=== PATIENT | female | born 1960 | race Caucasian/White ===

== ENCOUNTER → 2017-09-02 | Outpatient (CLI) | payer BC | END | disposition home or self-care (01) | LOC: MAMMO 10:02 | DX: Z12.31 Encounter for screening mammogram for malignant neoplasm of breast (principal); I10 Essential (primary) hypertension; F32.9 Major depressive disorder, single episode, unspecified | CPT/HCPCS: 77063; 77067 ==

== ENCOUNTER → 2018-03-09 | Outpatient (CLI) | payer BC ==
[2015-02-08 10:26] VITALS: BP 159/86
--- NOTE | 2018-03-09 13:46 | RAD ---
DATE: 03/09/2018 EXAM: MAMMO NAV DIAG BILAT HISTORY: 6 month follow-up COMPARISON: 09/02/2017 This study was interpreted with the benefit of Computerized Aided Detection (CAD). Breast Density: SCATTERED The breast parenchyma shows scattered fibroglandular densities. Breast parenchyma level B. FINDINGS: 2-D and 3-D tomosynthesis imaging was performed in CC and MLO projections. Small smooth scattered breast nodules appear unchanged again favoring a benign etiology. No new or enlarging breast densities are seen. No spiculated mass or architectural distortion is evident. Minimal benign type calcification is present. No suspicious microcalcifications have developed. IMPRESSION: Stable mammograms without evidence of malignancy. BI-RADS CATEGORY: 2 BENIGN FINDING(S) RECOMMENDED FOLLOW-UP: 12M 12 MONTH FOLLOW-UP PQRS compliance statement: Patient information was entered into a reminder system with a target due date for the next mammogram. Mammography is a sensitive method for finding small breast cancers, but it does not detect them all and is not a substitute for careful clinical examination. A negative mammogram does not negate a clinically suspicious finding and should not result in delay in biopsying a clinically suspicious abnormality. "Our facility is accredited by the [employer] Mammography [employer]."
== END | disposition home or self-care (01) ==
LOC: MAMMO 12:41
PROVIDERS: ATTEND Family Medicine
DX: R92.8 Other abnormal and inconclusive findings on diagnostic imaging of breast (principal)
CPT/HCPCS: 77066; G0279; 77062

== ENCOUNTER 2019-02-25 18:48 | Emergency (ER) | payer BC ==
[2019-02-25 19:00] VITALS: BP 171/90
[2019-02-25] MEDS ORDERED: DICL50TA2 PO (20:09)
[2019-02-25] MEDS ORDERED: HYDR-3164 PO (20:09)
--- NOTE | 2019-02-25 20:09 | PHYS DOC ---
Past Medical History Past Medical History: Arthritis, Depression, Hypertension Past Surgical History: Additional Past Surgical Histo: neck Alcohol Use: None Drug Use: None Adult General Chief Complaint Chief Complaint: ANKLE PROBLEM HPI HPI Patient is a 58 year old female who presents to the ED today complaining of 8 out of 10 throbbing intermittent left lateral ankle pain that began 3 days ago after she stepped wrong getting into her new truck. Patient denies falling. Describes the pain as sharp worse on weight bearing. She states the Al bandage she has on antibiotics some of the pain. Review of Systems Review of Systems Constitutional: Denies fever or chills [] Musculoskeletal: Reports left ankle pain Integument: Denies rash or skin lesions [] Neurologic: Denies headache, focal weakness or sensory changes [] All other systems were reviewed and found to be within normal limits, except as documented in this note. Allergies Allergies Allergies Coded Allergies Type Severity Reaction Last Updated Verified Sulfa (Sulfonamide Antibiotics) Allergy Intermediate hives 02/08/15 Yes Physical Exam Physical Exam Constitutional: Well developed, well nourished, no acute distress, non-toxic appearance. [] Skin: Warm, dry, no erythema, no rash. [] Back: No tenderness, no CVA tenderness. [] Extremities: Left ankle with no obvious deformity. Tenderness on palpation of the left lateral ankle. Full range of motion to the left ankle. +2 left pedal pulse. Cap refill less than 2 seconds the left lower extremity. Sensation i ntact. Neurologic: Alert and oriented X 3, normal motor function, normal sensory function, no focal deficits noted. [] Psychologic: Affect normal, judgement normal, mood normal. [] Current Patient Data Vital Signs Vital Signs Date Time Temp Pulse Resp B/P (MAP) Pulse Ox O2 Delivery O2 Flow Rate FiO2 02/25/19 19:00 97.8 85 12 171/90 (117) 96 Room Air 97.8 EKG EKG [] Radiology/Procedures Radiology/Procedures [] Course & Med Decision Making Course & Med Decision Making Pertinent Labs and Imaging studies reviewed. (See chart for details) This is a 58-year-old female patient presenting to the ED today with left ankle pain that began 3 days ago after she stepped wrong getting into her truck. Left ankle x-rays interpreted by Dr. Shen are negative for any acute findings. Patient already has an Al bandage on the left ankle, neurovascular exam is intact. Ice elevation encouraged. Follow-up with orthopedic doctor in a week if pain persist Dragon Disclaimer Dragon Disclaimer This electronic medical record was generated, in whole or in part, using a voice recognition dictation system. Departure Departure Impression: Primary Impression: Left ankle sprain Disposition: HOME, SELF-CARE Condition: STABLE Referrals: DANIELA MONROE MD (PCP) JUNIOR SANCHEZ MD follow up in 1 week Patient Instructions: Ankle Sprain Additional Instructions: You were seen for left ankle sprain, your left ankle x-rays are negative for any acute findings. Try to ice and elevate the extremity. Take the prescribed me dications as needed for pain and follow-up with your own doctor the provided orthopedic doctor in 1-2 weeks Scripts Diclofenac Potassium (DICLOFENAC POTASSIUM) 50 Mg Tablet 1 TAB PO BID, #20 TAB 0 Refills Prov: GODFREY TESFAYE APRN 02/25/19 Hydrocodone/Apap 5-325 (NORCO 5-325 TABLET) 1 Each Tablet 1 TAB PO Q6HRS, #10 TAB Prov: GODFREY TESFAYE APRN 02/25/19 Problem Qualifiers Primary Impression: Left ankle sprain Encounter type: initial encounter Involved ligament of ankle: unspecified ligament Qualified Codes: S93.402A - Sprain of unspecified ligament of left ankle, initial encounter GODFREY TESFAYE APRN Feb 25, 2019 20:09
--- NOTE | 2019-02-25 23:41 | RAD ---
Left ankle 3 views: Reason for examination: Left ankle pain for 2 days after rolling leg. No fracture or dislocation is evident. The bone density is normal. No abnormal periosteal reaction is seen. A small corticated os trigone appears to be present. Joint spaces are maintained. There does appear to be some soft tissue fullness medially. IMPRESSION: Soft tissue fullness medially. No acute bony abnormality evident. Electronically signed by: Whitney Naranjo MD (02/25/2019 11:38 PM) [id number]
== END 2019-02-25 20:31 | disposition home or self-care (01) ==
LOC: ER 18:48
DX: S93.402A Sprain of unspecified ligament of left ankle, initial encounter (principal); R00.2 Palpitations; M19.90 Unspecified osteoarthritis, unspecified site; F32.9 Major depressive disorder, single episode, unspecified; I10 Essential (primary) hypertension; Z98.890 Other specified postprocedural states; Z88.2 Allergy status to sulfonamides; W18.42XA Slipping, tripping and stumbling without falling due to stepping into hole or opening, initial encounter; Y93.89 Activity, other specified; Y92.89 Other specified places as the place of occurrence of the external cause; Y99.8 Other external cause status
CPT/HCPCS: 73610; 99284

== ENCOUNTER → 2019-09-04 | Outpatient (CLI) | payer BC ==
[~2019-09-04] MED LIST: DICL50TA2 PO; HYDR-3164 PO
--- NOTE | 2019-09-04 08:10 | RAD ---
INDICATION: Reason: LUQ PAIN / Spl. Instructions: / History: COMPARISON: None. TECHNIQUE: Grayscale and color ultrasound images obtained through the abdomen. FINDINGS: Aorta/IVC: Visualized portion unremarkable. Pancreas: Visualized portions unremarkable. Only partially seen. Liver: Echogenic. Gallbladder: Gallstones are visualized. Common Bile Duct: 5-6 mm. Right Kidney: No hydronephrosis. Spleen unremarkable. No left-sided hydronephrosis. IMPRESSION: * Gallstone is identified without common bile duct dilation. * Liver is echogenic. Nonspecific but can be seen with fatty infiltration. Electronically signed by: Xavier Early MD (09/04/2019 8:07 AM) [id number]
== END | disposition home or self-care (01) ==
LOC: US 06:51
PROVIDERS: ATTEND Nurse Practitioner Family
DX: K80.80 Other cholelithiasis without obstruction (principal); R10.12 Left upper quadrant pain
CPT/HCPCS: 76700

== ENCOUNTER → 2020-06-19 | Outpatient (CLI) | payer BC ==
--- NOTE | 2020-06-19 14:23 | KCIC ---
Bilateral digital screening mammograms with 3-D tomosynthesis: Reason for examination: Routine screening. Comparison is made to previous studies dated 03/09/2018 and 09/02/2017. Bilateral mammograms in CC and oblique projections were obtained with 2-D imaging and 3-D tomosynthes is imaging on a Siemens Inspiration unit and reviewed on the workstation. Interpretation was made wit h the benefit of CAD. The skin and nipples show no abnormalities. No abnormal axillary lymph nodes are seen. The breast par enchyma shows scattered fatty and fibroglandular density. (Breast density: Category B.) There appears to be a small nodular parenchymal density developing in the 2:00 B position of the left breast appro ximately 10 cm from the nipple and measuring approximately 6.4 mm in size. There also appear to be se veral small circumscribed nodules anteriorly in both breasts. There appears to be a small subcutaneou s lesion at the 9:00 position of the left breast 13.5 cm from the nipple. There is also a new subtle parenchymal density just beneath the skin surface at approximately the 8:00 B position of the left br east. These superficial nodules may represent sebaceous cysts. There are no other dominant masses, conte spicious calcifications or architectural distortion. Impression: Small nodular parenchymal densities bilaterally. Recommend further evaluation with bilateral breast u ltrasound. BI-RADS Category 0: Incomplete. Needs additional imaging evaluation "Our facility is accredited by the [employer] Mammography Program." This patient's information has been entered into a reminder system for the patient to be notified wit h the results of her examination and a target date for the next mammogram. Electronically signed by: Whitney Naranjo MD (06/19/2020 2:21 PM) [email or web address]
== END ==
LOC: KCIC MAMMO 07:53
PROVIDERS: ATTEND Family Medicine
DX: Z12.31 Encounter for screening mammogram for malignant neoplasm of breast (principal); N64.89 Other specified disorders of breast
CPT/HCPCS: 77063; 77067

== ENCOUNTER → 2020-07-08 | Outpatient (CLI) | payer BC ==
--- NOTE | 2020-07-08 12:27 | KCIC ---
Bilateral breast ultrasound: Reason for examination: Nodular densities bilaterally. Comparison is made to mammographic exam dated 06/19/2020. Bilateral ultrasound examinations of the breasts and axilla were performed. In the right breast there is some ductal ectasia but no suspicious nodules. No abnormal appearing lym ph nodes are seen in the axilla. In the left breast at the 2:00 position 10 cm from the nipple, there appears to be a small hypoechoic circumscribed nodule which would be consistent with a small intramammary lymph node. At the 8:00 pos ition 9 cm from the nipple, there is a 1.1 cm skin lesion consistent with a sebaceous cyst. At the 9: 00 position 12 cm from the nipple, there is a 7.1 mm hypoechoic skin lesion also consistent with a sm all sebaceous cyst. No other cystic or solid nodules are seen. No abnormal appearing lymph nodes are seen in the left axilla. IMPRESSION: Ductal ectasia in the right breast. Small intramammary lymph node at the 2:00 position of the left breast. Skin lesions consistent with a sebaceous cyst at the 8:00 and 9:00 positions of the left breast. Diaz mmend clinical follow-up. BI-RADS Category 2: Benign. "Our facility is accredited by the [employer] Mammography Program." This patient's information has been entered into a reminder system for the patient to be notified wit h the results of her examination and a target date for the next mammogram. Electronically signed by: Whitney Naranjo MD (07/08/2020 12:25 PM) [email or web address]
== END ==
LOC: KCIC US 07:58
PROVIDERS: ATTEND Family Medicine
DX: N60.41 Mammary duct ectasia of right breast (principal); N63.21 Unspecified lump in the left breast, upper outer quadrant
CPT/HCPCS: 76641